=== PATIENT | female | born 1955 | race Caucasian/White ===

== ENCOUNTER 2024-11-02 15:54 | Inpatient (IN) | payer MEDICARE ==
[2024-11-02] MEDS ORDERED: Glucagon 1 MG/ML KIT IM PRN (17:55)
[2024-11-02] MEDS ORDERED: Insulin Regular, Human 100 UNIT/ML 10 ML VIAL SC PRN (17:55)
[2024-11-02] MEDS ORDERED: Dextrose 50% Abboject 50 ML SYRINGE SLOW IVP PRN (17:55)
[2024-11-02] MEDS ORDERED: Bisacodyl 5 MG TAB PO PRN (18:06)
[2024-11-02] MEDS: Vit A,C & E/Lutein/Minerals Tablet PO SCH (21:49)
[2024-11-02] MEDS: metFORMIN 500 MG TAB PO SCH (21:50)
[2024-11-02] MEDS: Famotidine 20 MG TAB PO SCH (21:50)
[2024-11-02] MEDS: Acetaminophen 325 MG TAB PO PRN (21:51)
[2024-11-02] MEDS: Furosemide 40 MG TAB PO SCH (21:51)
[2024-11-02] MEDS: Transdermal Patch Removal TOP SCH (21:52)
[2024-11-03 05:48] LABS: ALT (SGPT) 16 U/L (Less than 34); AST (SGOT) 25 U/L (11-34); Albumin 3.2 g/dL (3.1-4.5); Alkaline Phosphatase 77 U/L (40-110); Anion Gap 17 mmol/L (10-20); BUN (Urea Nitrogen) 15 mg/dL (9.8-20.1); Bilirubin, Total 0.9 mg/dL (0.3-1.2); Calc. Creatinine Clearance 235 mL/min (70-130); Calcium 9.4 mg/dL (7.8-10.44); Carbon Dioxide 31 mmol/L (23-31); Chloride 95 mmol/L (98-107); Estimated GFR 96; Globulin 3.9 g/dL (2.4-3.5); Glucose 126 mg/dL (80-115); Potassium 3.9 mmol/L (3.5-5.1); Protein, Total 7.1 g/dL (5.8-8.1); Sodium 139 mmol/L (136-145)
[2024-11-03] MEDS: Furosemide 40 MG TAB PO SCH ×2 (06:32→08:12)
[2024-11-03] MEDS: Lidocaine 4% Patch TD SCH (08:10)
[2024-11-03] MEDS: Nystatin Powder 15 GM BOT TOP SCH (08:10)
[2024-11-03] MEDS: Aspirin 81 mg Enteric Coated Tablet PO SCH (08:11)
[2024-11-03] MEDS: Cyanocobalamin (Vitamin B-12) 1,000 MCG TAB PO SCH (08:11)
[2024-11-03] MEDS: LevoFLOXacin 500 MG TAB PO SCH (08:11)
[2024-11-03] MEDS: Multivitamin W/ Minerals 1 TAB PO SCH (08:11)
[2024-11-03] MEDS: Spironolactone 25 MG TAB PO SCH (08:11)
[2024-11-03] MEDS: Enoxaparin 40 MG (0.4 mL) SYRINGE SC SCH (08:11)
[2024-11-03] MEDS: Dapagliflozin Propanediol 10 MG TAB PO SCH (08:18)
[2024-11-03 09:31] LABS: Hematocrit 51.6 % (36.0-47.0); Mean Corpuscular HGB CONC 29.1 g/dL (32.0-36.0); Mean Corpuscular Hemoglobin 28.8 pg (27.0-31.0); RBC Distribution Width 14.2 % (11.5-14.5); Red Blood Cell (RBC) Count 5.21 mill/uL (4.20-5.40); White Blood Cell (WBC) Count 7.8 10x3/uL (4.8-10.8)
[2024-11-03 09:32] LABS: #Basophils 0.1 thou/uL (0.0-0.2); #Eosinophils 0.2 thou/uL (0.0-0.7); #Monocytes 0.6 thou/uL (0.11-0.59); #Neutrophils 5.8 thou/uL (1.40-6.50); %Basophils 1.7 % (0.0-1.0); %Eosinophils 3.2 % (0.0-10.0); %Lymphocytes 12.5 % (21.0-51.0); %Monocytes 7.7 % (0.0-10.0); Mean Platelet Volume 7.8 fL (7.4-10.4); Platelet Count 202 10x3/uL (130-400)
[2024-11-04] MEDS: traMADol HCl 50 MG TAB PO PRN (08:27)
[2024-11-04] MEDS: Senokot 8.6 MG TAB PO PRN (20:32)
[2024-11-06] MEDS: Furosemide 40 MG TAB PO SCH (08:30)
[2024-11-06] MEDS: Senokot 8.6 MG TAB PO PRN (20:31)
[2024-11-07] MEDS: Furosemide 40 MG TAB PO SCH (08:46)
[2024-11-07 20:50] LABS: Bilirubin Negative (Negative); Blood, Urine Negative (Negative); Clarity Slightly Cloudy (Clear); Glucose, Urine (Dipstick) >=1000 mg/dL (Negative); Ketone, Urine Negative (Negative); Leukocyte Negative (Negative); Nitrite Negative (Negative); Protein, Urine (Dipstick) Negative (Neg-Trace); pH, Urine 5.5 (5.0-9.0)
[2024-11-07 20:52] LABS: Bacteria/HPF Rare-Few HPF (None Seen); RBC/HPF 0-3 HPF (0-3); WBC/HPF 0-3 HPF (0-3)
[2024-11-09] MEDS ORDERED: traMADol HCl 50 MG TAB PO PRN ×2 (12:12→13:26)
[2024-11-09] MEDS: Naproxen 500 MG TAB PO SCH (13:30)
[2024-11-10] MEDS: traMADol HCl 50 MG TAB PO PRN (05:23)
[2024-11-10] MEDS: Metoprolol Succinate XL 25 MG ER.TAB PO SCH (09:06)
[2024-11-12] MEDS: Furosemide 40 MG TAB PO SCH (14:23)
[2024-11-15] MEDS ORDERED: Insulin Regular, Human 100 UNIT/ML 10 ML VIAL SC PRN (09:27)
[2024-11-16 06:12] VITALS: BMI 67.9
[2024-11-16] MEDS: Fluconazole 100 MG TAB PO SCH (08:15)
[2024-11-17 14:24] VITALS: BMI 67.8
[2024-11-20 07:47] VITALS: BP 111/72; TEMP 97.4
== END 2024-11-20 11:00 | disposition home or self-care (01) | DRG 945 ==
LOC: MADMS 16:19
PROVIDERS: ADMIT Family Medicine; ATTEND Family Medicine
PROC: F07Z9ZZ Gait Training/Functional Ambulation Treatment (ICD-10-PCS; principal; 2024-11-02)
DX: R53.81 Other malaise (principal); I50.32 Chronic diastolic (congestive) heart failure; L03.115 Cellulitis of right lower limb; J96.11 Chronic respiratory failure with hypoxia; Z68.44 Body mass index [BMI] 60.0-69.9, adult; I11.0 Hypertensive heart disease with heart failure; I27.20 Pulmonary hypertension, unspecified; E66.01 Morbid (severe) obesity due to excess calories; E11.9 Type 2 diabetes mellitus without complications; G47.33 Obstructive sleep apnea (adult) (pediatric); I87.8 Other specified disorders of veins; Z99.81 Dependence on supplemental oxygen; Z90.49 Acquired absence of other specified parts of digestive tract; Z90.710 Acquired absence of both cervix and uterus; Z98.890 Other specified postprocedural states
CPT/HCPCS: 36415; 36416; 80053; 81001; 83880; 85025; J1650